=== PATIENT | male | born 1975 | race Caucasian/White ===

== ENCOUNTER 2020-03-26 18:46 | Day surgery (SDC) | payer BC ==
[~2020-03-26] VITALS: Ht 182.9 cm; Wt 125.0 kg
[2020-03-26 19:46] VITALS: BP 133/80; PULSE 73; TEMP 97.7
[2020-03-26] MEDS ORDERED: ZOLOFT 50MG50 MG PO (21:39)
--- NOTE | 2020-03-26 21:48 | NUR ---
Pt. sitting up in bed at this time. Pt. is A&OX3, assessment complete. Pt. rates pain to lt. flank at a 2 on pain scale at this time. Pt. denies further needs, call light within reach.
[2020-03-26 23:53] VITALS: BP 130/76; PULSE 74; TEMP 97.4
[2020-03-27] VITALS (13 sets, daily range): BP systolic 116–139; BP diastolic 72–87; PULSE 64–80; TEMP 98–98.6
[2020-03-27] MEDS ORDERED: NORCO 325 MG-51 TAB PO (10:21)
[2020-03-27] MEDS ORDERED: PYRIDIUM 100MG100 MG PO (10:22)
--- NOTE | 2020-03-27 13:31 | NUR ---
DAVID met with the patient to discuss discharge plan. The patient lives in [place] with his , Madonna ([id number]#[phone]), and two children. He reports independence with ADLs and does not have any DME. The patient receives primary care at the [facility] and he receives his medications from [facility] in [place]. He reports no difficulties obtaining his meds. The patient is listed as self pay. The patient states that he does have insurance, [employer]. The patient provided DAVID with his insurance information. DAVID notified Financial Counselor, Ligia, and provided her with the patient's insurance information. The patient does not have a DPOA-HC and he was not interested in completing one at this time. The patient plans to return home with his family upon discharge. No additional needs at this time.
--- NOTE | 2020-03-27 17:45 | NUR ---
Patient has done well post op. Has been up ambulating in room independently, Post op VSS. Has been up voiding without difficulties. Voiding clear maroon tinged urine, has been gradually clearing up. Discharge education provided to patient at this time. Educated on when to call provider and increasing fluid intake. Patient educated on [place] and medication safety. All questions answered. Denies further needs at this time. Patient out with surgical staff.
== END 2020-03-27 17:45 | disposition home or self-care (01) ==
LOC: SDCO 18:46 → SURG 18:46 → EDSTATUS 03-27 13:00 → SURG 03-27 17:45 → SDCO 03-27 17:45 → SURG 03-27 17:45
DX: N13.2 Hydronephrosis with renal and ureteral calculous obstruction (principal); F41.9 Anxiety disorder, unspecified; Z87.891 Personal history of nicotine dependence; Z79.899 Other long term (current) drug therapy
CPT/HCPCS: C1769; C1894; C2617; G0378; G0379; J0690; J1100; J1885; J2405; J2704; J3010; J7030; Q9967